=== PATIENT | female | born 1990 | race Caucasian/White ===

== ENCOUNTER 2016-04-12 | Emergency (ER) | payer OTHER | END 2016-04-12 13:02 | disposition left against medical advice (07) | DX: Z53.21 Procedure and treatment not carried out due to patient leaving prior to being seen by health care provider (principal) ==

== ENCOUNTER 2016-04-13 07:51 | Emergency (ER) | payer OTHER ==
[2016-04-13] MEDS ORDERED: IBUPROFEN 800 MG TABLET PO STA (10:01)
[2016-04-13] MEDS ORDERED: IBUPROFEN 800 MG TABLET PO ONE (10:06)
== END 2016-04-13 10:10 | disposition home or self-care (01) ==
DX: N94.6 Dysmenorrhea, unspecified (principal); Z32.02 Encounter for pregnancy test, result negative; Z87.891 Personal history of nicotine dependence
CPT/HCPCS: 36415; 80053; 83690; 84702; 85025; 99283; A9270

== ENCOUNTER 2017-03-01 10:14 | Outpatient (CLI) | payer MEDICAID ==
[2017-03-01 10:42] LABS: BILIRUBIN,URINE NEGATIVE (NEGATIVE)
[2017-03-01 10:51] LABS: WBC,URINE >25 /HPF (0-5)
[2017-03-01 11:50] LABS: BASOPHILS % (AUTO) 0.1 %; EOSINOPHILS # (AUTO) 0.1 10^3/uL (0.0-0.7); EOSINOPHILS % (AUTO) 0.6 %; HCT - HEMATOCRIT 31.9 % (37.0-47.0); HGB - HEMOGLOBIN 11.2 g/dL (12.0-16.0); LYMPHOCYTES # (AUTO) 1.2 10^3/uL (1.5-3.5); LYMPHOCYTES % (AUTO) 10.9 %; MEAN CORPUSCULAR VOLUME 91.4 fL (81.0-99.0); MEAN PLATELET VOLUME 8.4 fL (7.9-10.8); MONOCYTES # (AUTO) 0.5 10^3/uL (0.0-1.0); MONOCYTES % (AUTO) 4.8 %; NEUTROPHILS # (AUTO) 9.3 10^3/uL (1.5-6.6); NEUTROPHILS % (AUTO) 83.6 %; RED BLOOD COUNT 3.49 10^6/uL (4.20-5.40); RED CELL DISTRIBUTION WIDTH 12.5 % (12.0-15.0); UNCORRECTED WHITE BLOOD COUNT 11.1 x10^3/uL; WHITE BLOOD COUNT 11.1 x10^3/uL (4.8-10.8)
[2017-03-03 05:48] LABS: TEST RESULT REPORT
== END 2017-03-01 10:15 | disposition home or self-care (01) ==
LOC: LAB 10:14
PROVIDERS: ATTEND Obstetrics & Gynecology
DX: Z34.90 Encounter for supervision of normal pregnancy, unspecified, unspecified trimester (principal); Z11.3 Encounter for screening for infections with a predominantly sexual mode of transmission
CPT/HCPCS: 36415; 81001; 81599; 82950; 85025; 86592; 86762; 86850; 86900; 86901; 87340; 87389

== ENCOUNTER 2017-03-10 07:16 | Outpatient (CLI) | payer MEDICAID ==
--- NOTE | 2017-03-10 17:07 | Ultrasound Report ---
CI: [id number] OB ULTRASOUND: 03/10/2017 HISTORY: Assess anatomy. TECHNIQUE: Real-time scanning by the wax bleacher with saved static images reviewed. FINDINGS: Single intrauterine gestation, breech presentation with cardiac activity of 128 beats per minute. Posterior placenta on the left. No evidence of placenta previa. Central cord origin from the placenta with a 3-vessel cord noted. Subjectively normal amniotic fluid volume with MVP 4.1 cm. BIOMETRY TODAY Biparietal diameter 6.4 cm, 26 weeks 0 days. Head circumference 24.9 cm, 27 weeks 0 days. Abdominal circumference 22.8 cm, 27 weeks 1 day. Femur length 5.2 cm, 27 weeks 5 days. Age by composite ultrasound measurements today: 27 weeks, 0 days, EDC 2017. Estimated weight: 1054 grams. A survey of anatomy is performed and includes intracranial and facial structures, spine, heart and outflow tracts, stomach, kidneys, diaphragm, bladder, cord insertion, and all four extremities. No anomalies are identified. Cervix long and closed, 3.8 cm. No adnexal masses seen. LAST MENSTRUAL PERIOD 07/20/2016 Clinical Age 33 weeks 2 days US Age 27 weeks 0 days EFW Hadlock 1054 EFW% Hadlock less than 3%tile Heart Rate 128 bpm EDC 04/26/2017 US EDC 06/09/2017 BPD Had[place] 26 weeks 0 days; Mean mm 64 HC Hadlock 27 weeks 0 days; Mean mm 249 AC Hadlock 27 weeks 1 day; Mean mm 228 FL [place] 27 weeks 5 days; Mean mm 52 Presentation breech Placental Location posterior L Cervical Length 3.8 cm Amniotic Fluid 14.0 cm IMPRESSION: SINGLE INTRAUTERINE GESTATION, BREECH PRESENTATION. AGE BY COMPOSITE ULTRASOUND MEASUREMENTS TODAY 27 WEEKS 0 DAYS, UMBERTO 06/09/2017. NO ANOMALIES ARE IDENTIFIED. MTDD
== END 2017-03-10 07:17 | disposition home or self-care (01) ==
LOC: DI 07:16
PROVIDERS: ATTEND Obstetrics & Gynecology
DX: Z36.9 Encounter for antenatal screening, unspecified (principal)
CPT/HCPCS: 76811

== ENCOUNTER 2017-05-04 09:38 | Outpatient (CLI) | payer MEDICAID | END 2017-05-04 09:39 | disposition home or self-care (01) | LOC: LAB.R 09:38 | PROVIDERS: ATTEND Obstetrics & Gynecology | DX: Z36.89 Encounter for other specified antenatal screening (principal) | CPT/HCPCS: 87081 ==

== ENCOUNTER 2017-05-12 11:46 | Outpatient (CLI) | payer MEDICAID ==
[2017-05-12] MEDS ORDERED: LACTATED RINGERS 500 ML IV ONE (12:06)
[2017-05-12] MEDS ORDERED: SODIUM CHLORIDE FLUSH 0.9% 10 ML SYRINGE ONE (12:33)
[2017-05-12] MEDS ORDERED: TERBUTALINE 1 MG/ML VIAL SUBQ ONE (13:13)
[2017-05-12] MEDS: LACTATED RINGERS 1,000 ML IV SCH (13:24)
[2017-05-12 13:43] LABS: BASOPHILS % (AUTO) 0.2 %; EOSINOPHILS # (AUTO) 0.1 10^3/uL (0.0-0.7); EOSINOPHILS % (AUTO) 0.4 %; HGB - HEMOGLOBIN 10.5 g/dL (12.0-16.0); LYMPHOCYTES # (AUTO) 1.7 10^3/uL (1.5-3.5); LYMPHOCYTES % (AUTO) 14.7 %; MEAN CORPUSCULAR HEMOGLOBIN 31.5 pg (27.0-31.0); MEAN CORPUSCULAR HGB CONC 34.4 g/dL (32.0-36.0); MEAN CORPUSCULAR VOLUME 91.5 fL (81.0-99.0); MONOCYTES # (AUTO) 0.5 10^3/uL (0.0-1.0); MONOCYTES % (AUTO) 4.2 %; NEUTROPHILS # (AUTO) 9.5 10^3/uL (1.5-6.6); NEUTROPHILS % (AUTO) 80.5 %; PLT - PLATELET COUNT 171 10^3/uL (130-450); RED BLOOD COUNT 3.34 10^6/uL (4.20-5.40); RED CELL DISTRIBUTION WIDTH 13.1 % (12.0-15.0); WHITE BLOOD COUNT 11.8 x10^3/uL (4.8-10.8)
[2017-05-12] MEDS ORDERED: PROMETHAZINE 25 MG/1 ML VIAL IM SCH (14:07)
[2017-05-12] MEDS ORDERED: MORPHINE 10 MG/ML VIAL IM SCH (14:07)
--- NOTE | 2017-05-12 18:22 | PROCEDURE REPORT ---
DATE OF SERVICE: 05/12/2017 Physician: Edward Nichole MD PRE-PROCEDURE DIAGNOSIS: Thirty-six weeks' gestation, confirmed breech presentation, back up. POST-PROCEDURE DIAGNOSIS: Thirty-six weeks' gestation, confirmed breech presentation, back up. Successful conversion to vertex. PROCEDURE PERFORMED: External version. SURGEON: Edward Nichole MD, FACOG, [facility] ANESTHESIA: On standby; sedation with morphine and Phenergan. COMPLICATIONS: None. BLOOD LOSS: None. FINDINGS: Pre-procedure ultrasound finds the fetus to be breech with the back to the maternal left. There is adequate fluid. Preoperative NST was reactive. Post-version, head was confirmed down and stable. No damage seen when scanning the placenta. Post-procedure NST reactive. TECHNIQUE: Prior to the version, we had a lengthy informed consent talk that reviewed what a breech position was, what it entails, and management options. Options include 1. Expectant management, hoping for a vertex conversion. 2. External version. 3. section. Risks and benefits of each were delineated. After taking some time to consider her options, she chose version. The OR was placed on standby, as well as Anesthesia. Dr. Edward Leos also was standby outside of the room. The abdomen was slathered with ultrasound gel until it became quite slippery. Then, we began to massage counterclockwise to execute a forward somersault, myself massaging the area of head and shoulders while nursing stroking upwards and around to move the breech superior. The fetus rotated fairly easily and the head settled into the pelvis. Post-version NST was normal. The patient was given instructions to engage in pelvic rest and not engage in any strenuous exercise. She will have another physician check next week in the office to confirm the conversion remains permanent. TD: 05/12/2017 18:21
--- NOTE | 2017-05-12 20:21 | Ultrasound Preliminary Report ---
Exam: US OB BIOPHYSICAL PROFILE IMPRESSION: 1. B[place]eo live intrauterine with gestational age 36 weeks 0 days based on established ED D. 2. Biophysical profile score 8 of 8. [facility] SITE ID: [id number]
--- NOTE | 2017-05-12 20:29 | Ultrasound Report ---
EXAM: BIOPHYSICAL PROFILE EXAM DATE: 05/12/2017 06:38 PM. CLINICAL HISTORY: Non-reactive NST. COMPARISON: None. TECHNIQUE: Real-time sonographic evaluation of the fetus performed by the fiber optic assembler. Multiple repre sentative static images were saved for review. DATING: Established EGA 36 weeks 0 days with UMBERTO 06/09/2017. GENERAL EVALUATION B[place]eo . Cardiac activity: 137 bpm. movement: Visualized. Presentation: Cephalic. Placenta: Posterior fundal position. No evidence for previa or abruption. Amniotic fluid: Normal. UNIQUE 19.2 cm. MVP 7.2 cm. BIOPHYSICAL PROFILE Breathing = 2 Movement = 2 Tone = 2 Amniotic Fluid = 2 Total 11/10 IMPRESSION: 1. B[place]o live intrauterine with gestational age 36 weeks 0 days based on established ED D. 2. Biophysical profile score 8 of 8. [facility] Referring Provider Line: [phone] SITE ID: [id number]
[2017-05-12 21:44] VITALS: BP 110/53
[2017-05-13] MEDS: LACTATED RINGERS 1,000 ML IV SCH (02:23)
== END 2017-05-12 21:00 | disposition home or self-care (01) ==
LOC: WFO 11:46 → FBP 11:46 → WFO 21:00
PROVIDERS: ATTEND Obstetrics & Gynecology
DX: O32.1XX0 Maternal care for breech presentation, not applicable or unspecified (principal); Z3A.36 36 weeks gestation of pregnancy
CPT/HCPCS: 59412; 76819; 85025; J7120; 99215

== ENCOUNTER 2017-05-14 14:58 | Outpatient (CLI) | payer MEDICAID ==
[2017-05-14 15:19] VITALS: BP 117/81
== END 2017-05-14 16:20 | disposition home or self-care (01) ==
LOC: WFO 14:58 → FBP 15:00 → WFO 16:20
PROVIDERS: ATTEND Obstetrics & Gynecology
DX: O36.8130 Decreased fetal movements, third trimester, not applicable or unspecified (principal); Z3A.36 36 weeks gestation of pregnancy
CPT/HCPCS: 59025

== ENCOUNTER 2017-06-05 07:52 | Outpatient (CLI) | payer MEDICAID ==
[2017-06-05 08:11] VITALS: BP 123/76
[2017-06-05 09:24] LABS: RUPTURE OF MEMBRANES PLUS NEGATIVE (NEGATIVE)
== END 2017-06-05 09:48 | disposition home or self-care (01) ==
LOC: WFO 07:52 → FBP 07:54 → WFO 09:48
PROVIDERS: ATTEND Obstetrics & Gynecology
DX: Z34.83 Encounter for supervision of other normal pregnancy, third trimester (principal)
CPT/HCPCS: 84112; 99213

== ENCOUNTER 2017-06-11 07:36 | Inpatient (IN) | payer MEDICAID ==
[2017-06-11] MEDS ORDERED: SODIUM CHLORIDE FLUSH 0.9% 10 ML SYRINGE ONE (10:14)
[2017-06-11] MEDS ORDERED: LACTATED RINGERS 1,000 ML IV ONE (10:14)
[2017-06-11] MEDS ORDERED: SODIUM CHLORIDE FLUSH 0.9% 10 ML SYRINGE IVP PRN (10:24)
[2017-06-11] MEDS ORDERED: fentaNYL 100 MCG/2 ML VIAL IVP PRN (10:24)
[2017-06-11] MEDS ORDERED: ONDANSETRON 4 MG/2 ML VIAL IVP PRN ×2 (10:24→11:27)
[2017-06-11] MEDS ORDERED: fentaNYL 100 MCG/2 ML VIAL ONE (10:37)
[2017-06-11 10:46] LABS: BASOPHILS % (AUTO) 0.2 %; EOSINOPHILS # (AUTO) 0.1 10^3/uL (0.0-0.7); EOSINOPHILS % (AUTO) 0.9 %; HGB - HEMOGLOBIN 11.7 g/dL (12.0-16.0); LYMPHOCYTES # (AUTO) 2.3 10^3/uL (1.5-3.5); LYMPHOCYTES % (AUTO) 21.6 %; MEAN CORPUSCULAR HEMOGLOBIN 31.5 pg (27.0-31.0); MEAN CORPUSCULAR HGB CONC 35.1 g/dL (32.0-36.0); MEAN CORPUSCULAR VOLUME 89.6 fL (81.0-99.0); MEAN PLATELET VOLUME 8.9 fL (7.9-10.8); MONOCYTES # (AUTO) 0.5 10^3/uL (0.0-1.0); MONOCYTES % (AUTO) 4.3 %; NEUTROPHILS # (AUTO) 7.9 10^3/uL (1.5-6.6); PLT - PLATELET COUNT 186 10^3/uL (130-450); RED BLOOD COUNT 3.73 10^6/uL (4.20-5.40); RED CELL DISTRIBUTION WIDTH 13.4 % (12.0-15.0); WHITE BLOOD COUNT 10.8 x10^3/uL (4.8-10.8)
[2017-06-11] MEDS: LACTATED RINGERS 1,000 ML IV SCH ×4 (10:52→23:04)
[2017-06-11] MEDS ORDERED: fent/BUPIV 2 MCG/0.125% 250 ML EP ONE (10:58)
[2017-06-11] MEDS ORDERED: BUPIVACAINE 0.25% PF 10 ML VIAL SUBQ ONE (11:21)
[2017-06-11] MEDS ORDERED: LACTATED RINGERS 500 ML IV ONE (11:27)
[2017-06-11] MEDS ORDERED: ePHEDrine 50 MG/ML VIAL IVP PRN (11:27)
[2017-06-11] MEDS ORDERED: fent/BUPIV 2 MCG/0.125% 250 ML EP PRN (11:27)
[2017-06-11] MEDS ORDERED: NALOXONE 0.4 MG/ML VIAL IVP PRN (11:27)
[2017-06-11] MEDS ORDERED: NALBUPHINE 20 MG/ML AMP IVP PRN (11:27)
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
--- NOTE | 2017-06-11 16:52 | PROVIDER PROGRESS NOTE ---
Labor Progress Note - Uterine Monitoring Contraction Frequency (min/apart): q 5min Contraction Intensity: positive: Mild Uterine Resting Tone: positive: Soft - Monitoring Monitor Mode: positive: External ultrasound Heart Rate Baseline: 130 Heart Rate Variability: positive: Moderate (6-25 bmp) Accelerations: positive: Present, 10x10 (=/32 wks) Decelerations: positive: None Strip Review: positive: Category I - Vaginal Exam Dilation (in cm): 5 (Pat) Effacement (%): 100% Station: 0 - Labor Progress Note Labor Progress Note/Additional Text: After epidural the frequency and strength of uterine contractions have diminished. Pitocin augmentation ordered.
[2017-06-11] MEDS ORDERED: OXYTOCIN/SODIUM CHLORIDE 500 ML IV SCH (17:00)
--- NOTE | 2017-06-11 19:41 | PROVIDER PROGRESS NOTE ---
Labor Progress Note - Uterine Monitoring Uterine Monitoring Mode: positive: External toco : Q 4 min ? Contraction Intensity: positive: Mild Uterine Resting Tone: positive: Soft - Monitoring Monitor Mode: positive: External ultrasound Heart Rate Baseline: 130 Heart Rate Variability: positive: Moderate (6-25 bmp) Accelerations: positive: Present, 15x15 Decelerations: positive: None, Variable - Vaginal Exam Dilation (in cm): 5 Effacement (%): 100% Station: 0 Cervical Position: Anterior - Labor Progress Note Labor Progress Note/Additional Text: Pitocin augmentation was started at 1700 hrs. and is only is slowly advanced to 4 milliunits. Contractions remain in adequate. Currently transport is in progress thereby diverting focus to that need. As soon as transport is underway we will rupture remaining membranes and be more aggressive with Pitocin.
[2017-06-11] MEDS: OXYTOCIN/SODIUM CHLORIDE 250 ML IV ONE (21:05)
[2017-06-11] MEDS ORDERED: HYDROCORTISONE/PRAMOXINE 10 GM PR PRN (21:20)
[2017-06-11] MEDS ORDERED: HYDROcod/ACETAM 5/325 MG TABLET PO PRN (21:20)
[2017-06-11] MEDS ORDERED: WITCH HAZEL/GLYCERIN 1 EACH MED..PAD TOP PRN (21:20)
--- NOTE | 2017-06-11 21:20 | DELIVERY NOTE ---
Delivery Note - Labor Labor: positive: Augmented by oxytocin - Delivery Method Delivery Method: positive: Spontaneous vaginal delivery - Presentation Presentation: positive: Vertex, OA - occiput anterior - Nuchal Cord Nuchal Cord: positive: None - Anesthetic Anesthetic Type: - Amniotic Fluid Description Amniotic Fluid Description: positive: Light meconium - Episiotomy Type Episiotomy Type: positive: None - Laceration Laceration: positive: None - Delivery Outcome Delivery Outcome: positive: Livebirth - [place] : positive: Placed in direct skin contact with mother, Suctioned, Bulb syringe, Stimulated sex: positive: Female - Cord Cord: positive: 3 vessels - Placenta Placenta: positive: Intact, Spontaneous - Estimated Blood Loss Estimated Blood Loss (in cc): 300 - Post Delivery Events Post Delivery Events: positive: No post delivery events - Delivery Comments (Free Text/Narrative) Delivery Comments (Free Text/Narrative): Living female infant; weight 7 lbs. 11 oz.; Apgars 9/9. Mother father and family all bonded well
[2017-06-11] MEDS ORDERED: LACTATED RINGERS 1,000 ML IV SCH (22:00)
[2017-06-11] MEDS: IBUPROFEN 600 MG TABLET PO SCH (23:02)
[2017-06-11] MEDS: ACETAMINOPHEN 325 MG TABLET PO SCH (23:02)
[2017-06-11] MEDS: SODIUM CHLORIDE FLUSH 0.9% 10 ML SYRINGE IVP SCH (23:03)
--- NOTE | 2017-06-12 04:02 | PROCEDURE REPORT ---
DATE OF SERVICE: 06/11/2017 Physician: Edward Nichole MD PREOPERATIVE DIAGNOSES 1. A 40-week, 6-day gestation. 2. Labor. 3. Pitocin augmentation. 4. Light meconium fluid. 5. Status post external version from breech to vertex at 36 weeks POSTOPERATIVE DIAGNOSES 1. A 40-week, 6-day gestation. 2. Labor. 3. Pitocin augmentation. 4. Light meconium fluid. 5. Successful delivery of a living female . PROCEDURE: Vaginal delivery over an intact perineum without any lacerations. BOAT CARPENTER MECHANIC: Edward Nichole MD, FACOG, [facility] ANESTHESIA: Kishan Loco, Certified Nurse Rubber Heel And Sole Press Tender; epidural. DRAINS: None. ESTIMATED BLOOD LOSS: 300. COMPLICATIONS: None. FINDINGS: At 2100 a living female was born weighing x and scoring Apgars of 9/9. There was light meconium noted. Infant had a rigorous response for life. There were no evident congenital anomalies or trauma. The cord was 3-vessel configuration with no entanglement or nuchal cord. Placenta was delivered intact with no evidence of abruption infection. There was meconium staining on the membranes. Inspection of the female genital tract finds no lacerations or damage. Cervix visualized, intact. TECHNIQUE: The patient achieved completion at or about 8:30. Shortly before delivery, 8:50, I checked the patient and she was complete, 100% effaced and +3 station. Epidural was turned off. The patient began to push with excellent effort and smoothly brought the head to the perineum. The oropharynx was gently suctioned and about 4 mL of meconium stained fluid. Shoulders were easily delivered. Infant was placed on the maternal abdomen. Once the cord stopped cessation, it was clamped and transected. At 2105, the placenta was delivered intact. Uterus responded well to massage and Pitocin. Mother, father, and baby are all bonded together well. Rh positive, rubella immune and RPR negative. Hepatitis B surface antigen negative, HIV negative. TD: 06/12/2017 04:01 [facility]
[2017-06-12] MEDS: OXYTOCIN/SODIUM CHLORIDE 250 ML IV ONE (04:12)
[2017-06-12] MEDS: ACETAMINOPHEN 325 MG TABLET PO SCH ×5 (05:26→20:20)
[2017-06-12] MEDS: IBUPROFEN 600 MG TABLET PO SCH ×3 (05:26→20:20)
[2017-06-12] MEDS: SODIUM CHLORIDE FLUSH 0.9% 10 ML SYRINGE IVP SCH (06:01)
--- NOTE | 2017-06-12 09:27 | PROVIDER PROGRESS NOTE ---
Subjective - General Admit Date: 06/11/17 Procedure Date: 06/11/17 Post Op Days: 1 Procedure Performed: Normal vaginal delivery without complications or lacerations - Review of Systems General: positive: No symptoms HEENT: positive: No symptoms Pulmonary: positive: No symptoms Cardiovascular: positive: No symptoms Gastrointestinal: positive: No symptoms, [place] Genitourinary: positive: No symptoms Musculoskeletal: positive: No symptoms Skin: positive: No symptoms Psychiatric: positive: No symptoms Objective - Patient Data Vital Signs: Vital Signs x48h Temp Pulse Resp BP Pulse Ox 06/12/17 08:39 97.8 F 81 14 114/59 L 100 06/12/17 05:25 98.6 F 72 16 106/66 99 06/12/17 01:28 98.4 F 89 16 106/51 L 99 Weight: Weight 06/10/17 06/11/17 06/12/17 23:59 23:59 23:59 Weight (kg) 112.945 kg Intake & Output: Intake and Output Totals x24h 06/10/17 06/11/17 06/12/17 23:59 23:59 23:59 Intake Total 2522.466 1427.534 Output Total 450 425 Balance 2072.466 1002.534 - Lab Results Lab Results: 06/11/17 10:15 Other Lab Results: Lab Results x24hrs 06/11/17 Range/Units 10:15 WBC 10.8 (4.8-10.8) x10^3/uL RBC 3.73 L (4.20-5.40) 10^6/uL Hgb 11.7 L (12.0-16.0) g/dL Hct 33.4 L (37.0-47.0) % MCV 89.6 (81.0-99.0) fL MCH 31.5 H (27.0-31.0) pg MCHC 35.1 (32.0-36.0) g/dL RDW 13.4 (12.0-15.0) % Plt Count 186 (130-450) 10^3/uL MPV 8.9 (7.9-10.8) fL Neut # 7.9 H (1.5-6.6) 10^3/uL Lymph # 2.3 (1.5-3.5) 10^3/uL [place] # 0.5 (0.0-1.0) 10^3/uL Eos # 0.1 (0.0-0.7) 10^3/uL Baso # 0.0 (0.0-0.1) 10^3/uL Absolute Nucleated RBC 0.00 x10^3/uL Nucleated RBC % 0.0 /100WBC - Current Medications Current Medications: Current Medications Generic Name Dose Route Start Last Admin Trade Name Pema PRN Reason Stop Dose Admin Acetaminophen 650 mg 06/11/17 11:00 06/12/17 05:26 Tylenol PO 650 mg Q6H AUTUMN Administration Lactated Ringer's 1,000 mls @ 150 mls/hr 06/11/17 11:00 06/12/17 06:01 Lr IV Infused .Q6H40M AUTUMN Infusion Oxytocin/Sodium Chloride 500 mls @ 1 mls/hr 06/11/17 17:00 06/12/17 06:00 Pitocin/Sodium Chloride IV 50 mls/hr TITR AUTUMN Titration Protocol 1 MILLIUNIT/MIN Ibuprofen 600 mg 06/11/17 22:00 06/12/17 05:26 Motrin PO 600 mg Q6H AUTUMN Administration Sodium Chloride 10 ml 06/11/17 10:24 06/12/17 06:01 Normal Saline Flush 0.9% IVP 10 ml PRN PRN Administration NEEDED PER PROVIDER ORDERS Sodium Chloride 10 ml 06/11/17 17:00 06/12/17 06:01 Normal Saline Flush 0.9% IVP 10 ml 0100,0900,1700 AUTUMN Administration Physical Exam - Physical Exam General: positive: No acute distress, Alert HEENT: positive: Moist mucous membranes Neck: positive: Supple w/out meningeal sx Abdomen: positive: Normal Bowel sounds Female : positive: Enlarged uterus (17-18 weeks size, nontender) Extremities: positive: Normal ROM, Non tender Skin: positive: Warm and dry Neurologic: positive: Alert and Oriented X 3, Normal Sensation, Normal Speech Assessment/Plan - Assessment/Plan Assessment: Patient recovering normally post vaginal delivery. She is breast-feeding without difficulty. She requests at least another day to recover. Plan: Plan discharge on Wednesday if ready
[2017-06-12 12:20] LABS: BASOPHILS % (AUTO) 0.2 %; EOSINOPHILS # (AUTO) 0.1 10^3/uL (0.0-0.7); EOSINOPHILS % (AUTO) 0.7 %; HGB - HEMOGLOBIN 9.7 g/dL (12.0-16.0); LYMPHOCYTES # (AUTO) 2.1 10^3/uL (1.5-3.5); LYMPHOCYTES % (AUTO) 24.4 %; MEAN CORPUSCULAR HEMOGLOBIN 31.1 pg (27.0-31.0); MEAN CORPUSCULAR HGB CONC 34.6 g/dL (32.0-36.0); MEAN CORPUSCULAR VOLUME 89.9 fL (81.0-99.0); MEAN PLATELET VOLUME 8.5 fL (7.9-10.8); MONOCYTES # (AUTO) 0.4 10^3/uL (0.0-1.0); MONOCYTES % (AUTO) 4.8 %; NEUTROPHILS # (AUTO) 6.1 10^3/uL (1.5-6.6); NEUTROPHILS % (AUTO) 69.9 %; PLT - PLATELET COUNT 164 10^3/uL (130-450); RED BLOOD COUNT 3.11 10^6/uL (4.20-5.40); RED CELL DISTRIBUTION WIDTH 13.5 % (12.0-15.0); WHITE BLOOD COUNT 8.8 x10^3/uL (4.8-10.8)
[2017-06-13] MEDS: IBUPROFEN 600 MG TABLET PO SCH ×3 (03:56→10:50)
[2017-06-13] MEDS: ACETAMINOPHEN 325 MG TABLET PO SCH ×3 (03:57→10:43)
[2017-06-13] MEDS ORDERED: MEASLES,MUMPS & RUBELLA VACC 0.5 ML VIAL SUBQ ONE (10:43)
--- NOTE | 2017-06-13 10:46 | PROVIDER PROGRESS NOTE ---
Subjective - Prog Note Date Prog Note Date: 06/13/17 Prog Note Time: 11:00 - Subjective Pt reports feeling: Improved Subjective: Patient feels well and is ambulating without difficulty. Nursing is going well. She is ready for discharge. She will receive an MMR Vaccine prior to discharge. Complete discharge summary dictated Objective - Vital Signs/Intake & Output Vital Signs: Vital Signs x48h Temp Pulse Resp BP Pulse Ox 06/13/17 04:14 97.9 F 66 16 102/48 L 100 Intake & Output: Intake & Output 06/10/17 06/11/17 06/12/17 06/14/17 23:59 23:59 23:59 00:59 Intake Total 2522.466 1487.534 Output Total 450 425 Balance 2072.466 1062.534 - Lab Results Fish Bones: 06/12/17 12:10 Other Labs: Lab Results x24hrs 06/12/17 Range/Units 12:10 WBC 8.8 (4.8-10.8) x10^3/uL RBC 3.11 L (4.20-5.40) 10^6/uL Hgb 9.7 L (12.0-16.0) g/dL Hct 27.9 L (37.0-47.0) % MCV 89.9 (81.0-99.0) fL MCH 31.1 H (27.0-31.0) pg MCHC 34.6 (32.0-36.0) g/dL RDW 13.5 (12.0-15.0) % Plt Count 164 (130-450) 10^3/uL MPV 8.5 (7.9-10.8) fL Neut # 6.1 (1.5-6.6) 10^3/uL Lymph # 2.1 (1.5-3.5) 10^3/uL [place] # 0.4 (0.0-1.0) 10^3/uL Eos # 0.1 (0.0-0.7) 10^3/uL Baso # 0.0 (0.0-0.1) 10^3/uL Absolute Nucleated RBC 0.00 x10^3/uL Nucleated RBC % 0.0 /100WBC
--- NOTE | 2017-06-13 10:48 | Discharge Plan ---
Discharge Plan Disposition: 01 Home, Self Care Diet: Regular Activity Restrictions: Activity as Tolerated Shower Restrictions: No Driving Restrictions: No Weight Bearing: Full Weight No Smoking: If you smoke, Please STOP! Call for help. Follow-up with: Edward Nichole MD [Provider Admit Priv/Credential] -
[2017-06-13 11:56] VITALS: BP 114/62
--- NOTE | 2017-06-13 13:22 | Labor Flowsheet ---
Labor Flowsheet Datetime Report Generated by CPN: 06/13/2017 13:22 Datetime: 06/13/2017 10:47 VITAL SIGNS NBP Sys/Denia/Mean (mmHg): 112 : 59 : 63 Pulse: 71 Datetime: 06/12/2017 20:04 SpO2 (%): 100 Datetime: 06/12/2017 04:20 Membranes Ruptured Date/Time: 06/11/2017 19:39 Amniotic Fluid Odor: Normal Datetime: 06/11/2017 21:05 Stage of : Datetime: 06/11/2017 21:04 LaborFlag: Labor Datetime: 06/11/2017 21:01 STAGE 2 Pushing: Coached on Pushing; Urge to Push Pushing Position: Pushing with Contractions Datetime: 06/11/2017 21:00 UTERINE ACTIVITY Monitor Mode: External Frequency (min): 1.5-3 Quality: Strong Duration (sec): 60+ Pattern: Normal: <= 5 Contractions in 10 Minutes ASSESSMENT A Monitor Mode: External US FHR Baseline Rate : 140 Variability: Moderate 6-25 bpm Decelerations: Variable Category: Category II Comments: occassional accel to 150s Pushing Progress: with Pushing Datetime: 06/11/2017 20:52 VAGINAL EXAM Dilatation (cm): 10.0 Effacement (%): 100 Station: 3 Exam by: Dr. Nichole Datetime: 06/11/2017 20:49 COMMUNICATION Communication: Call/Page Placed to Provider Provider Notified (Name): Dr. Nichole Notification Reason: Status Update; Labor Status Datetime: 06/11/2017 20:45 Respirations: 16 Datetime: 06/11/2017 20:40 Patient Position/Activity: Left Lateral Datetime: 06/11/2017 20:35 I/O Interventions: Straight Cath (ml) @ 600 Datetime: 06/11/2017 20:19 Monitor Interventions for FHR: Ultrasound Adjusted Datetime: 06/11/2017 20:16 Monitor Interventions for UA: [place] Adjusted Datetime: 06/11/2017 20:00 Resting Tone (Palpate): Relaxed Pitocin Checklist: At Least 1 Acceleration of 15 bpm x 15 Seconds in 30 Minutes or Adequate Variabi lity; Uterus Palpates Soft between Contractions Accelerations: 15X15 Datetime: 06/11/2017 19:41 PAIN Pain Scale: 0 Pain Presence: None/Denies MATERNAL ASSESSMENT Level of Consciousness: Fully Conscious Headache: Denies Breath Sounds, Left: Clear and Equal Breath Sounds, Right: Clear and Equal Nausea/Vomiting: Denies RUQ Epigastric Pain: Denies Maternal Comments: pt states she feels relaxed - no numbness/tingling or heaviness Datetime: 06/11/2017 19:39 Membrane Status: Ruptured Membranes Rupture Method: Spontaneous Amniotic Fluid Color: Light Meconium Amniotic Fluid Amount: Moderate Datetime: 06/11/2017 19:38 Temperature (C): 37.4 Datetime: 06/11/2017 19:31 Vaginal Exam Comments: "bulging bag" Datetime: 06/11/2017 19:30 Contraction Comments: 1 contraction seen - lasting 30 seconds, toco not picking up contractions Datetime: 06/11/2017 19:02 PATIENT CARE Oxygen Method: Room Air Datetime: 06/11/2017 18:28 FHR Baseline Changes: No Baseline Change Datetime: 06/11/2017 18:16 MEDICATIONS Pitocin (milliunits): Increased to @ (Annotations: increased to 3 mu) Datetime: 06/11/2017 16:00 Pain Type: Contraction Pain Location: Abdomen Comfort Measures: Family Support Datetime: 06/11/2017 12:00 Patient Care Comments: patient is sleeping soundly with epidural in place Datetime: 06/11/2017 11:30 Pain Goal: 2 Pain Coping: Breathing Through Contractions Datetime: 06/11/2017 10:50 ANESTHESIA Anesthesia Interview: E Epidural Positioning: Sitting Epidural Procedure: Cath Placed; Test Dose; Loading Dose; Completed Epidural Procedure Other: Pump Started Anesthesia Level Check: T10- Umbilicus
--- NOTE | 2017-06-14 14:08 | DISCHARGE SUMMARY ---
Physician: Edward Nichole MD DATE OF ADMISSION: 06/11/2017 DATE OF DISCHARGE: 06/13/2017 DIAGNOSES 1. A 40-week 6-day gestation in active labor. 2. Prolonged active phase, augmentation of labor. 3. Status post successful version from breech to vertex at 36 weeks. 4. Successful vaginal delivery of a living female infant. 5. Slight meconium stained fluid. PROCEDURES: Manually assisted vaginal delivery without lacerations (Dr. Nichole). COMPLICATIONS: None. HISTORY: The patient is a 26-year-old , 2, para 2 woman who was noted to begin contractions at 10 o'clock on 06/10/2017. The contractions were steadily mounded until she presented at 8 a.m. in Labor and Delivery. There was no ruptured membranes. Her baseline exam was 2 cm, but it progressed to 4 cm by the time of admission. Her history is remarkable for external version at 36 weeks. BASELINE LABS: Blood type O positive, antibody screen negative. Baseline hemoglobin 11.2, RPR nonreactive, rubella nonimmune, HIV negative, RPR negative. Urinalysis normal and a glucose challenge test normal at 113. Reference typewritten H and P. HOSPITAL COURSE: Patient was admitted and allowed to labor. The contractions increased intensity and she was given an epidural. Unfortunately, epidural diminished the contraction intensity and patient stalled out at 5 cm for a couple of hours. This necessitated oxytocin augmentation. Membranes were ruptured spontaneously and there was mec stained fluid. Patient progressed to completion. A normal vaginal delivery was accomplished to yield a living female weighing 7 pounds 11 ounces and scoring Apgars of 9 and 9. Meconium was not a factor. Placenta was delivered intact. Total blood loss 300 mL. Postoperatively, she recovered rapidly advancing to full diet and activity. She breastfed without difficulty. On postdelivery day 2, she felt well and desired discharge. Callback instructions were reviewed. DISCHARGE MEDICATIONS 1. vitamins with iron. 2. Motrin 600 q.6 hours. 3. [place] for breakthrough pain. 4. Colace. Follow up in 2 weeks for general assessment. TD: 06/13/2017 01:07
== END 2017-06-13 13:00 | disposition home or self-care (01) | DRG 775 ==
LOC: WFO 07:36 → FBP 07:36 → WFO 10:23 → FBP 10:24
PROVIDERS: ADMIT Obstetrics & Gynecology; ATTEND Obstetrics & Gynecology
PROC: 10E0XZZ Delivery of Products of Conception, External Approach (ICD-10-PCS; principal; 2017-06-11)
DX: O63.0 Prolonged first stage (of labor) (principal); O77.0 Labor and delivery complicated by meconium in amniotic fluid; Z3A.40 40 weeks gestation of pregnancy; Z37.0 Single live birth
CPT/HCPCS: 36415; 85025; 99213